=== PATIENT | female | born 1995 | race Two or more races ===

== ENCOUNTER 2021-09-10 21:13 | Emergency (ER) | payer MEDICAID ==
[~2021-09-10] VITALS: Ht 165.1 cm; Wt 70.3 kg
--- NOTE | 2021-09-10 21:20 | NUR ---
[employer] AND [employer] C/O METH USE, FOUND OUTSIDE [facility] ACTING BIZARRE. PT YELLING, PARANOID, AND UNCOOPERATIVE. TOLERATING R/A WELL WITH NO SOB. SAFETY MEASURES IN PLACE. SAFETY 1:[address]
[2021-09-10] MEDS ORDERED: HALOPERIDOL LACTATE INJ 5 MG/ML VIAL IM ONE (21:30)
[2021-09-10] MEDS ORDERED: LORAZEPAM INJ 2 MG/ML VIAL IM ONE (21:30)
[2021-09-10] MEDS ORDERED: diphenhydrAMINE HCL 50 MG/ML VIAL IM ONE (21:30)
[2021-09-10] MEDS ORDERED: HALOPERIDOL LACTATE INJ 5 MG/ML VIAL ONE (21:41)
[2021-09-10] MEDS ORDERED: diphenhydrAMINE HCL 50 MG/ML VIAL ONE (21:41)
[2021-09-10] MEDS ORDERED: LORAZEPAM INJ 2 MG/ML VIAL ONE ×3 (21:41)
--- NOTE | 2021-09-10 21:56 | NUR ---
COVID ANTIGEN SWAB COLLECTED AND SENT TO LAB
--- NOTE | 2021-09-10 22:29 | NUR ---
PT UNCOOPERATIVE AT THIS TIME; NOT ABLE TO COLLECT URINE OR BLOOD AT THIS TIME. WILL F/U AND TRY AGAIN LATER
[2021-09-10] MEDS ORDERED: OLANZAPINE 10 MG VIAL IM ONE ×2 (22:59→23:00)
--- NOTE | 2021-09-10 23:16 | NUR ---
urine collected and sent to lab
[2021-09-10 23:44] LABS: BILIRUBIN,URINE SMALL (NEGATIVE); COLOR,URINE DARK YELLOW (YELLOW); LEUKOCYTE ESTERASE ,URINE SMALL (NEGATIVE); NITRITE, URINE POSITIVE (NEGATIVE); PH,URINE 6.5 (5.0-8.0); PROTEIN,URINE 30 mg/dl (NEGATIVE); UGLUCOSE NEGATIVE (NEGATIVE)
[2021-09-10 23:51] LABS: BASOPHILS % (AUTO) 0.2 % (0.0-2.0); EOSINOPHILS % (AUTO) 0.3 % (0.0-6.0); HEMATOCRIT 37 % (33-45); HEMOGLOBIN 11.9 g/dL (11.5-14.8); LYMPHOCYTES # (AUTO) 1.4 K/uL (0.8-4.8); LYMPHOCYTES % (AUTO) 19.5 % (20.0-44.0); MEAN CORPUSCULAR HGB CONC 33 g/dl (31.0-36.0); MEAN CORPUSCULAR VOLUME 102 fL (82-100); MONOCYTES # (AUTO) 0.6 K/uL (0.1-1.30); MONOCYTES % (AUTO) 8.8 % (2.0-12.0); NEUTROPHILS # (AUTO) 5.2 K/uL (1.8-8.9); NEUTROPHILS % (AUTO) 71.2 % (43.0-81.0); PLATELET COUNT (AUTO) 193 K/uL (150-450); RED BLOOD CELL COUNT(AUTO) 3.58 MIL/uL (4.0-5.2); WHITE BLOOD COUNT (AUTO) 7.3 K/uL (4.3-11.0)
[2021-09-10 23:56] LABS: WBC,URINE 51-80 /HPF (0-3)
[2021-09-10 23:57] LABS: BACTERIA,URINE Few /HPF (None Seen); MUCUS,URINE Few /LPF (None Seen); SQUAMOUS EPITHELIAL CELL,UR Few /HPF (None Seen)
[2021-09-11 00:29] LABS: CALCIUM, SERUM 8.9 mg/dL (8.5-10.1); CARBON DIOXIDE 25 mmol/L (21-32); CHLORIDE 105 mmol/L (98-107); CREATININE 0.8 mg/dL (0.6-1.3); GLUCOSE 95 mg/dL (74-106); POTASSIUM 3.6 mmol/L (3.5-5.1); SODIUM SERUM 139 mmol/L (136-145); UREA NITROGEN, BLOOD 10 mg/dL (7-18)
[2021-09-11 00:35] LABS: ALBUMIN 3.6 g/dL (3.4-5.0); ALKALINE PHOSPHATASE 83 U/L (46-116); ASPARTATE AMINOTRANSFERASE 38 U/L (15-37); BILIRUBIN,TOTAL 0.5 mg/dL (0.2-1.0); TOTAL PROTEIN, SERUM 7.2 g/dL (6.4-8.2)
[2021-09-11 01:41] LABS: BILIRUBIN,DIRECT 0.2 mg/dL (0.0-0.2)
[2021-09-11 01:42] LABS: ALANINE AMINOTRANSFERASE < 6 U/L (12-78)
[2021-09-11 01:43] LABS: ALCOHOL, BLOOD < 3 mg/dL (0-0)
[2021-09-11 01:48] LABS: ACETAMINOPHEN 0 ug/ml (10-30)
[2021-09-11] MEDS ORDERED: NITROFURANTOIN/MONOHYDRATE MACROCRYSTALS 100 MG CAPSULE PO ONE (03:00)
--- NOTE | 2021-09-11 03:07 | NUR ---
PT SLEEPING AT THIS TIME; ALL NEEDS MET. PT IN NO ACUTE DISTRESS AT THIS TIME SAFETY MEASURES CONTINUED
[2021-09-11 04:20] LABS: EOSINOPHILS % (MANUAL) 1 % (0-4); LYMPHOCYTES % (MANUAL) 23 % (16-48); MONOCYTES % (MANUAL) 6 % (0-11.0); NEUTROPHILS % (MANUAL) 70 (42-76)
[2021-09-11] MEDS ORDERED: NITR100C6 PO (06:39)
[2021-09-11] MEDS ORDERED: NITROFURANTOIN/MONOHYDRATE MACROCRYSTALS 100 MG CAPSULE ONE (07:52)
--- NOTE | 2021-09-11 07:58 | NUR ---
patient awake and alert verbalized "i am suicidal, I want to OD on meds again". MD notified and will fax clinicals to [facility]io crystal.
--- NOTE | 2021-09-11 10:52 | NUR ---
CLINICALS FAED TO [facility].
--- NOTE | 2021-09-11 11:55 | NUR ---
TRANSFER INFO: Accepted by Dr Harvey [phone]
--- NOTE | 2021-09-11 12:00 | NUR ---
CALLED [facility] ETA [phone]
--- NOTE | 2021-09-11 12:03 | NUR ---
[facility] CALLED UNABLE TO GET THIS PT DUE TO INSUANCE.
--- NOTE | 2021-09-11 12:30 | NUR ---
SAVANNAH faxed clinicals to the following [facility] for voluntary psychiatric treatment: [facility] TEL: [phone] fax: [phone] [facility] tel:[phone] FAX:[phone]; [phone] [facility] fax:[phone] tel:[phone]
--- NOTE | 2021-09-11 15:30 | NUR ---
Patient verbalized "I am not suicidal anymore or HI". MD notified and aware.
--- NOTE | 2021-09-11 16:50 | NUR ---
Patient asked to speak to SAVANNAH. SW met with pt. at bedside. The pt. is a 26 year old female who came in for meth OD and stating she was experiencing suicidal ideation. The pt. states that she is currently no longer having SI. Pt. is requested to be reffered to rehab. SW provided motivational interviewing, education regarding drug dependence and provided addiction resources. The pt. states she was last residing with her boyfriend here in [place] and does not want to return there. Pt. states she ad no family or other friends in the area. SW offered senior care placement and provided directions to senior care and pt. refused. Patient states she will "figure our where to go". SW provided pt. with tap card for bus transportation and pt. accepted. Pt. refused homeless resources. Pt. signed homeless waiver and it was placed in the pt.'s chart. Pt. will be provided with food before DC. SAVANNAH provided pt. with the following resources and faxed clinicals [facility] FAX:[phone] PHONE:[phone] Year-round shelters: [facility] [address] [place] [address] ; [facility] [address] [place] [address]; [facility] Ryfbf[address] [facility]. [facility] [address] Hygiene: [facility] [facility]: [address] [place] ; [facility] [address] [facility] ; [facility] [address] . Food Resources: [place] [facility] at [facility]- [address] [place]; Meet Each Need with Dignity ([facility]) [address] [place]; [facility] [address] [facility]; [facility] [address] [place]. Mental Health resources provided: [facility] [address] [place] [address] ; [facility] [place] [address], [place] [address] ; [facility] [address] [place] [address] ; [facility] [address] [place], [place] [phone] Healthcare Clinics: [facility] [address] [facility], [address] [place]. [place] ; [facility] [address] [facility] [address] [place] [address]; [facility] [address] [place] [address] [phone] Counseling--Outpatient [facility] [address] [facility], [place] [address] (Specializes in in-depth psychotherapy for emotional distress: anxiety, depression, interpersonal conflicts, life transitions, childhood abuse) [facility] [address] [place] [address] (Assist with solving problem marital difficulties, separation & divorce, aging parents, & grief, chronic & terminal illness) [facility] [address] [place] [address] (Deal with loss & grief, anxiety, marital difficulties) Homebound/Mental Health Services [address], [address] [place] [address] (Provide in-home mental services to people who are incapable of leaving their homes) [facility] Elder[facility] Senior Service/Resource Center [address] [place] [address] [facility] [address] [place] [address] PSYCHIATRIC OUTPATIENT SERVICES [facility] Partial Hospitalization and Intensive Outpatient Program (Managed Care and [place] Only)[address] [facility] [phone] [facility] Partial Hospitalization and Outpatient Mdismsc[address] [facility] [place], [place] [phone] [facility] [place] [id number] [facility]. [address] [place], [place] [phone] [facility] Partial Hospitalization and Outpatient Tgyyxvn77097 Josephine Johnson, [phone] Substance Abuse resources provided included: [facility] Substance Abuse Self-Helpline ([facility]) ; [facility] [address] [facility]. [place] [address] ; [facility] [place] [address] [facility] [address] ; [facility] [address] [facility] [phone] ; [facility] [phone] ; [facility] [address] [facility] [address] ; [facility] [address] [facility] [phone] ; [facility] Substance Abuse Helpline([facility] ; [facility] ; [facility] [place]; [facility] [place]; [facility] [place]; [facility] Rogelio stephen; [place] [facility]; [facility] [place] [facility]; [facility] [place] [employer] [employer] [facility]; [facility] [place] [place]; Alcoholics Anonymous -[facility]; [place]-Khtd-[place] ; Marijuana Anonymous [facility]; Narcotics Anonymous [email or web address];
--- NOTE | 2021-09-11 16:59 | NUR ---
SAVANNAH faxed clinicals [facility] FAX:[phone] PHONE:[phone] [facility] time. TTC will follow up with pt. when bed becomes available.
[2021-09-11 17:41] VITALS: BP 120/66
--- NOTE | 2021-09-11 17:41 | NUR ---
Patient discharged to home in stable condition. Written and verbal after care instructions given. Patient verbalizes understanding of instruction.
== END 2021-09-11 17:41 | disposition home or self-care (01) ==
LOC: ER 21:15
DX: F15.129 Other stimulant abuse with intoxication, unspecified (principal); N39.0 Urinary tract infection, site not specified; Z20.822 Contact with and (suspected) exposure to COVID-19
CPT/HCPCS: 36415; 80048; 80076; 80143; 80307; 80320; 81001; 84703; 85007; 85025; 87086; 87426; 96372 ×2; 99285; C9803; J1200; J1630; J2060; J3490; G0480